=== PATIENT | female | born 1985 | race African-American/Black ===

== ENCOUNTER 2017-03-10 07:56 | Emergency (ER) | payer OTHER ==
[~2017-03-10] VITALS: Ht 162.6 cm; Wt 128.9 kg
[~2017-03-10 07:56] MED LIST: AEROECLIPSE1 EACH MC; AUGMENTIN500 MG PO; BACTRIM,SEPT1 TABLET PO; CEFADROXIL500 MG PO; ENDOCET 5-3251 EACH PO; FERROUS SULFAT325 MG PO; FLEXERIL10 MG PO; HYDROCHLOROTHIA25 MG PO; IBUPROFEN800 MG PO; LEVOXYL100 MCG PO; MOBIC7.5 MG PO; MOTRIN800 MG PO; NOHOMEMEDS; NORCO 5/3251 TABLET PO; PERCOCET 5/31 TABLET PO; PREDNISONE20 MG PO; PRENATAL TABLE1 EAC3 PO; PROAIR HFA8.5 GM IH; PROVENTIL,2.5 MG/0.5 IH; PROVENTIL,2.5 MG/3 M IH; PULMICORT FLE180 MCG IH; TAMIFLU75 MG PO; TESSALON PERLE100 MG PO; VENTOLIN HFA18 GM IH; ZOFRAN8 MG PO; [UNRECOGNIZED DRUG - OTHER] PO
[2017-03-10 09:01] LABS: BASOPHIL COUNT 0.1 K/uL (0-0.1); EOSINOPHIL COUNT 0.1 K/uL (0-0.3); HEMATOCRIT 41.3 % (36.0-46.0); IMMATURE GRANULOCYTE (%) 0.6 % (0.0-0.7); IMMATURE GRANULOCYTE COUNT 0.1 K/uL; INSTRUMENT ABS NEUTROPHIL CT 9.7 K/uL; LYMPHOCYTE COUNT 2.7 K/uL (1.0-2.8); MCH 23.5 PG (29.0-34.0); MCHC 30.3 G/DL (30.0-36.0); MCV 77.5 FL (83-99); MEAN PLAT.VOLUME 9.2 uM^3 (9.5-12.4); MONOCYTE (%) 5.5 % (3-12); MONOCYTE COUNT 0.7 K/uL (0-0.8); NEUTROPHIL (%) 72.3 % (45-76); NEUTROPHIL COUNT 9.7 K/uL (1.8-6.4); PLATELET COUNT 409 K/uL (156-360); RBC DIS.WIDTH-CV 16.6 % (11.8-14.6); RBC DIS.WIDTH-SD 46.4 % (39-53); RED BLOOD COUNT 5.33 M/uL (3.80-5.20); WHITE BLOOD COUNT 13.4 K/uL (4.1-10.2)
[2017-03-10 09:12] LABS: CHLORIDE 104 mEq/L (99-109); POTASSIUM 4.2 mEq/L (3.7-5.4); SODIUM 137 mEq/L (136-147)
[2017-03-10 09:14] LABS: GLUCOSE 101 mg/dL (70-99)
[2017-03-10 09:15] LABS: ANION GAP 9 MEQ/L (2-14)
[2017-03-10 09:16] LABS: TOTAL BILIRUBIN 0.2 mg/dL (0.0-1.0)
[2017-03-10 09:17] LABS: ALKALINE PHOSPHATASE 95 IU/L (3-129); GFR ESTIMATE (CALCULATED) > 59 mL/min/
[2017-03-10 09:19] LABS: UREA NITROGEN (BUN) 15 mg/dL (9-23)
[2017-03-10 09:21] LABS: TROP-I INTERPRETATION NEGATIVE; TROPONIN-I < 0.01 ng/mL (0.0-0.30)
[2017-03-10 09:29] LABS: QUANTITATIVE HCG < 4.0 MIU/ML
[2017-03-10] MEDS ORDERED: PREDNISONE20 MG PO (10:31)
[2017-03-10] MEDS ORDERED: TESSALON200 MG PO (10:31)
[2017-03-10 10:53] VITALS: BP 124/82
== END 2017-03-10 10:54 | disposition home or self-care (01) ==
LOC: EME 07:56
PROVIDERS: Physician Assistant
DX: J45.901 Unspecified asthma with (acute) exacerbation (principal); E11.9 Type 2 diabetes mellitus without complications; E03.9 Hypothyroidism, unspecified; Z87.891 Personal history of nicotine dependence
CPT/HCPCS: 71020; 80053; 84484; 84702; 85025; 93005; 94640; 99281; 99283; J7512